=== PATIENT | male | born 2000 | race African-American/Black ===

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

== ENCOUNTER 2022-04-16 03:20 | Emergency (ER) | payer BC ==
[2022-04-16] MEDS ORDERED: Loperamide 2 MG Cap PO STA (03:37)
[2022-04-16] MEDS ORDERED: Sodium Chloride 0.9% 1,000 ML IV ONE (03:37)
[2022-04-16] MEDS ORDERED: Ondansetron 4 MG/2 ML SDV IVPUSH ONE (03:37)
[2022-04-16 04:29] LABS: ESTIMATED GFR 88 mL/min (>60)
== END 2022-04-16 05:42 | disposition home or self-care (01) ==
LOC: JD.ED 03:20
DX: A08.4 Viral intestinal infection, unspecified (principal)
CPT/HCPCS: 36415; 80053; 83690; 83735; 85007; 85027; 86140; 96361; 96374; 99284; A9270; J2405; J7030

== ENCOUNTER 2022-05-03 22:20 | Emergency (ER) | payer SELFPAY | END 2022-05-03 22:50 | LOC: JD.ED 22:20 | DX: S01.81XA Laceration without foreign body of other part of head, initial encounter (principal); X83.8XXA Intentional self-harm by other specified means, initial encounter | CPT/HCPCS: 99284; 99285 ==